=== PATIENT | male | born 1935 | race Caucasian/White ===

== ENCOUNTER 2018-04-03 09:03 | Inpatient (IN) | payer OTHER ==
[~2018-04-03] VITALS: Ht 180.3 cm; Wt 89.4 kg
[2018-04-03] VITALS (8 sets, daily range): BP systolic 101–149; BP diastolic 62–90
--- NOTE | ~2018-04-03 | HC ---
[facility] [place] [address] CONSULTATION Name: KAREN BULLOCK Room #: 451-P [facility] IN M.R.#: [id number] Admission: 04/03/18 Attend Phys: Parth Shepherd MD Discharge: 04/05/18 Date of : 33 Report #: [id number] THIS REPORT FOR: //name// CC: Debbie Shepherd REASON FOR CONSULTATION: Cardiomyopathy. HISTORY OF PRESENT ILLNESS: The patient is an 82-year-old gentleman with a history of a nonischemic cardiomyopathy, improved with biventricular pacing, permanent atrial fibrillation, hypertension and dementia. Apparently, he had just gotten out of a chair and lost his balance, falling and sustained a left femoral neck fracture. He was seen in [facility] Emergency Department and transferred to [facility] for further evaluation. The patient was just seen in the office on 03/30 and was doing well. He continues to deny chest pain, pressure or ischemic type symptoms. No other injuries in the fall. No heart failure symptoms including orthopnea, paroxysmal nocturnal dyspnea or lower extremity edema. There have been no bleeding problems with warfarin. No symptoms to suggest ICD discharge. Recent [employer] device interrogation demonstrated a normally functioning device with 100% biventricular pacing, 5 years to elective generator replacement. ALLERGIES: HE HAS MULTIPLE ALLERGIES LISTED IN THE MEDICAL RECORD. THESE HAVE BEEN REVIEWED. PAST MEDICAL HISTORY: His past history in medical records have been reviewed and include a history of permanent atrial fibrillation, nonischemic cardiomyopathy, dementia, osteoarthritis, Parkinson's disease, dyslipidemia, sleep apnea, cataract excision, cholecystectomy, knee arthroscopy and tooth extraction. SOCIAL HISTORY: He is a former smoker and nondrinker. . FAMILY HISTORY: Notable for mother with congestive heart failure and hypertension. REVIEW OF SYSTEMS: All systems negative except as that noted above. PHYSICAL EXAMINATION: GENERAL: A pleasant gentleman who is alert, in no distress. VITAL SIGNS: Blood pressure is 112/73, heart rate is 75 and regular, temperature is 98.5 degrees, 5 feet 11 inches tall and 197 pounds. HEENT: There are neither xanthelasma, subcutaneous xanthomata, oral mucosal or digital cyanosis or kyphoscoliosis present. CHEST: Clear to auscultation and percussion. CARDIAC: Regular rate and rhythm with normal S1 and S2. ABDOMEN: Soft and nontender. [facility] [address] [place] [address] CONSULTATION Name: KAREN BULLOCK SETH Room #: 451-P DIS IN M.R.#: [id number] Admission: 04/03/18 Attend Phys: Parth Shepherd MD Discharge: 04/05/18 Date of : 34 Report #: [id number] EXTREMITIES: Without cyanosis, clubbing or edema. Radial pulses are 2+. NEUROLOGIC: He is alert with a nonfocal exam. LABORATORY DATA: Sodium 144, potassium 3.6, creatinine 1.1 and magnesium 1.7. INR of 1.8. White count 8.7, hemoglobin 12.5, hematocrit 36 and platelet count 115. EKG demonstrates biventricular pacing. IMPRESSION: 1. Nonsyncopal fall with hip fracture. 2. Nonischemic cardiomyopathy, EF 40-45% range. 3. Chronic systolic heart failure. 4. Permanent atrial fibrillation. 5. Hypertension. 6. Dementia. 7. History of biventricular pacing. 8. Sleep apnea. 9. Hypercoagulable. RECOMMENDATIONS: 1. Resume usual medications. Volume status is stable. 2. Recent device interrogation demonstrates a normally functioning device, 100% biventricular pacing. 3. No contraindications from a cardiovascular standpoint for hip surgery. 4. Resume anticoagulation when safe from a surgical standpoint. Thank you for asking me to participate in the patient's care. <ELECTRONICALLY SIGNED> By: Hayes Ricardo MD, FACC 04/06/18 0850 0737 21 Hayes Ricardo MD, FACC /nt
--- NOTE | ~2018-04-03 | EKG ---
[address] [address] ELECTROCARDIOGRAM REPORT Name: KAREN BULLOCK Room #: 451-P ADM IN M.R.#: [id number] Admission: 04/03/18 Attend Phys: Parth Shepherd MD Discharge: Date of : 34 Report #: [id number] THIS REPORT FOR: //name// [facility] Test Date: 2018-04-03 Test Time: 11:26:03 Pat Name: KAREN BULLOCK Department: Room: Gender: M [employer]: [employer] DOSS : 1935 Requested By: Parth Shepherd Order Number: [id number] MD: Ihsmael Garrison Measurements Intervals [place] Rate: 72 P: AK: QRS: -170 QRSD: 172 T: 15 QT: 466 QTc: 511 Interpretive Statements Atrial fibrillation Ventricular premature complex vs Karmen beat Right bundle branch block Baseline wander in lead(s) I Compared to ECG 02/13/2010 07:48:06 Ventricular premature complex(es) now present Electronically Signed On 04-03-2018 13:39:16 SEWAGE PLANT OPERATOR by Ishmael Garrison [email or web address] <ELECTRONICALLY SIGNED> By: Ishmael Garrison MD 04/03/18 1339 [id number] [id number] Ishmael Garrison MD /EPI
--- NOTE | ~2018-04-03 | EKG ---
[address] [employer] [place] [address] ELECTROCARDIOGRAM REPORT Name: KAREN BULLOCK Room #: 451-P ADM IN M.R.#: [id number] Admission: 04/03/18 Attend Phys: Parth Shepherd MD Discharge: Date of : 34 Report #: [id number] THIS REPORT FOR: //name// [facility] Test Date: 2018-04-04 Test Time: 07:54:37 Pat Name: KAREN BULLOCK Department: Room: 451 P Gender: M Chicken Sexer: GR : 1935 Requested By: Parth Shepherd Order Number: [id number] MD: Hayes Ricardo Measurements Intervals [place] Rate: 78 P: [place]: QRS: 197 QRSD: 160 T: 21 QT: 446 QTc: 509 Interpretive Statements Afib/flut and V-paced complexes No further analysis attempted due to paced rhythm Baseline wander in lead(s) V5 Compared to ECG 04/03/2018 11:26:03 No significant change was found Electronically Signed On 04-04-2018 7:59:15 ELEVATOR SERVICEMAN by Hayes Ricardo [email or web address] <ELECTRONICALLY SIGNED> By: Hayes Ricardo MD, [facility] 04/04/18 [id number] [id number] Hayes Ricardo MD, [facility] /EPI
--- NOTE | ~2018-04-03 | HC ---
[facility] [place] [address] CONSULTATION Name: KAREN BULLOCK Room #: 451-P ADM IN M.R.#: [id number] Admission: 04/03/18 Attend Phys: Parth Shepherd MD Discharge: Date of : 34 Report #: [id number] THIS REPORT FOR: //name// CC: Debbie Shepherd CHIEF COMPLAINT: Left hip fracture. HISTORY OF PRESENT ILLNESS: The patient is a pleasant 82-year-old male who was admitted to [facility] yesterday with diagnosis of a left femoral neck fracture, status post fall. The patient presented to the Emergency Department at [facility] yesterday after falling and landing on the left hip. The patient's reports that he went to get out of bed at about 05:30 yesterday morning, when he was trying to get out of the chair and he fell and landed on his left side. He was taken by ambulance to the Emergency Department at [facility], where he had x-rays taken showing left femoral neck fracture. He was then admitted to [facility] as a transfer for further care for his left hip. The patient's reports that they live at home alone and the patient, prior to this, ambulated without assistance. He does have a history of Parkinson's and the patient's family reports that his gait is very shuffled and unsteady, but up to this point, he has not had significant history of falls and this is his first fracture. ALLERGIES: DONALD INHIBITORS, ACETAMINOPHEN, AMIODARONE, AMLODIPINE, ATORVASTATIN, CCBS, CARVEDILOL, CLINDAMYCIN, ENALAPRIL, HYDROCHLOROQUINE, LOSARTAN, MIRTAZAPINE, PREDNISONE, QUINAPRIL, SOTALOL, STATIN AND VERAPAMIL. PAST MEDICAL HISTORY: Significant for atrial fibrillation, anticoagulation on Coumadin; Parkinson disease with dementia; BPH; cardiomyopathy; cataracts; GERD; hypertension; insomnia; osteoarthritis of the bilateral shoulders; psychosis; systolic heart failure and vitamin D deficiency. PAST SURGICAL HISTORY: Significant for biventricular ICD placement, cholecystectomy, right TKA and bilateral carpal tunnel syndrome. MEDICATIONS: Please see MAR for current dosages. SOCIAL HISTORY: The patient denies any tobacco, alcohol or drug use. The patient lives at home with his and typically ambulates without assistance. PHYSICAL EXAMINATION: VITAL SIGNS: Temperature 38.6, blood pressure 125/68, bedside pulse oximetry 87 and pulse rate 75. GENERAL: The patient is awake and alert, in no acute distress. EXTREMITIES: Left leg is neurovascularly intact, tenderness to palpation about the anterior and lateral aspects of the left hip. No tenderness to palpation of the thigh, knee, calf or foot. Calf is soft. Pain with attempted range of [facility] [address] [place] [address] CONSULTATION Name: KAREN BULLOCK SETH Room #: 451-P ADM IN M.R.#: [id number] Admission: 04/03/18 Attend Phys: Parth Shepherd MD Discharge: Date of : 34 Report #: [id number] motion of the left hip. RADIOGRAPHIC DATA: Two views of the left hip performed at [facility] yesterday were reviewed and show a left femoral neck fracture. SUMMARY: We reviewed the patient's diagnosis and treatment options today with the patient and his family who is at the bedside today. We discussed risks and benefits as well as potential complications following a left hip hemiarthroplasty. We discussed the need for physical therapy postoperatively, this may result in admission to a fpc facility. We also discussed that going forward He may need to ambulate with a cane or walker as he has a shuffled gait and is unsteady on his feet. The patient and his family have elected to proceed with left hip hemiarthroplasty. The patient was given fresh frozen plasma yesterday to reverse his Coumadin and we will plan on proceeding with surgery today. By: 1110 [id number] JUAN Bhat /william
--- NOTE | ~2018-04-03 | O ---
[facility] [place] [address] OPERATIVE REPORT Name: KAREN BULLOCK Room #: 451-P ADM IN M.R.#: [id number] Admission: 04/03/18 Attend Phys: Parth Shepherd MD Discharge: Date of : 34 Report #: [id number] THIS REPORT FOR: //name// CC: Debbie Shepherd DATE OF SERVICE: 04/04/2018 PREOPERATIVE DIAGNOSIS: Left femoral neck fracture, displaced. POSTOPERATIVE DIAGNOSIS: Left femoral neck fracture, displaced. PROCEDURE PERFORMED: Left hip hemiarthroplasty. SURGEON: Salty Canales M.D. ROLLER SKATE ASSEMBLER: Shayla Sheldon PA-C. ANESTHESIA: General. FLUIDS: Approximately 800 mL of crystalloid. ESTIMATED BLOOD LOSS: Approximately 100 mL. IMPLANTS UTILIZED: [employer] Synergy cemented stem size 14 with 55 mm unipolar head, +0 taper sleeve with distal 12 mm centralizer. DESCRIPTION OF PROCEDURE: After proper identification of the patient and operative site in preoperative holding area, the operative site was signed by myself. Prophylactic antibiotics were given. The patient elected to receive the above-proposed procedure. After proper identification of the patient and the operative site in the preoperative holding area, the patient's condition and potential treatment options were reviewed in detail with him as well as his family members. The patient has also been evaluated preoperatively by Dr. Parth Shepherd from a hospitalist standpoint. The patient was brought back to the operative suite after induction of satisfactory general anesthesia. He was carefully positioned in the right lateral decubitus position. Pelvis was stabilized. The axillary roll was utilized. Left hip was sterilely prepped and draped in the usual manner. Final skin draping was with Ioban. Posterior approach to the hip was planned. Skin was incised sharply. Full thickness skin flaps were developed. A Charnley retractor was carefully placed. Piriformis tendon was identified and tagged. Short external rotators were divided. T-shaped capsulotomy was performed and apices were tagged. Femoral head was displaced posteriorly. It was removed with a corkscrew, measured 55 mm on the backtable and a trial reduction ball of 55 mm provided the best overall fit and stability. The acetabulum was intact without fractures or significant chondral [address] [address] OPERATIVE REPORT Name: KAREN BULLOCK [facility] Room #: 451-P [facility] IN ..#: [id number] Admission: 04/03/18 Attend Phys: Parth Shepherd MD Discharge: Date of : 34 Report #: [id number] damage. The femoral neck fracture was then freshened up approximately 1 cm above the lesser trochanter using an oscillating saw. This was prepared by hand with reaming and broaching up to a size 14 Synergy cemented stem. A distal cement restrictor had been placed after the trials were utilized. The joint was thoroughly irrigated with normal saline. Two bags of cement were prepared. The canal was irrigated with normal saline and a pulse systems development consultant. Dried cement was pressurized and injected. The stem was inserted in an inverted position. After the cement had fully cured and the excess bone cement had been removed, trial reduction was again utilized and final implantation with a 55 mm head posterior sleeve. This appeared to provide equal leg lengths on the table with stable range of motion. No propensity to dislocate. Capsule was repaired with #2 FiberWire after the joint had been thoroughly irrigated with antibiotic irrigant. The piriformis was reapproximated with #2 FiberWire. One gram of vancomycin powder was utilized, half of it deep, half of it more superficial. Gluteal fascia was repaired with 0 Vicryl and 2-0 Vicryl for the subcutaneous tissues. Final skin closure was with ruben. Sterile dressing was applied. He was awakened and transferred to the recovery room in stable condition. Qualified assistant county attorney utilized throughout the entire procedure to aid in patient limb positioning, visualization and retraction of the soft tissues, instrument passage, closure and dressing application. By: 1248 1352 Salty Canales MD /william
[~2018-04-03 09:03] MED LIST: ARICEPT 5 MG TAB5 MG PO; BENICAR20 MG PO; CALCIUM +D & M1 EACH PO; COUMADIN 5 MG TA5 M1 PO; DILTIAZEM 24HR180 MG PO; DILTIAZEM ER180 MG PO; JANTOVEN6 MG PO; K-DUR 20 MEQ T20 MEQ PO; LASIX 40 MG TAB40 MG PO; SEROQUEL 25 MG25 M1 PO; SINEMET 25-1001 EAC1 PO; TOPROL XL50 MG PO; TRAMADOL 50 MG50 MG PO; VISION PLUS LU1 EACH PO
[2018-04-03] MEDS ORDERED: ARICEPT 5 MG TAB5 MG PO (11:23)
[2018-04-03] MEDS ORDERED: FLONASE 0.05%50 MCG NASAL (11:24)
[2018-04-03] MEDS ORDERED: SINEMET 25-1001 EAC1 PO (11:26)
[2018-04-03] MEDS ORDERED: CLONAZEPAM 0.50.5 M1 PO ×2 (11:28→11:29)
[2018-04-03] MEDS ORDERED: K-DUR 20 MEQ T20 MEQ PO (11:28)
[2018-04-03] MEDS ORDERED: NAMENDA 10 MG T10 MG PO (11:29)
[2018-04-03] MEDS ORDERED: FINASTERIDE5 MG PO (11:30)
[2018-04-03] MEDS ORDERED: TRAMADOL 50 MG50 MG PO (11:31)
[2018-04-03] MEDS ORDERED: VITAMIN D1000 UNI2 PO (11:32)
[2018-04-03] MEDS ORDERED: ZANTAC 150MG T150 MG PO (11:33)
[2018-04-03 16:21] LABS: INR 2.6; PROTIME 27.2 Seconds (9.3-11.4)
[2018-04-04] VITALS (9 sets, daily range): BP systolic 103–125; BP diastolic 61–82
[2018-04-04 04:35] LABS: HEMATOCRIT 36.8 % (42.0-52.0); HEMOGLOBIN 12.5 gm/dL (14.0-18.0); MCH 31.9 pg (26.0-34.0); MCHC 34.1 g/dL (28.0-37.0); MCV 93.4 fL (80.0-100.0); RBC 3.94 mil/uL (4.50-6.00); RDW 14.3 % (10.5-14.5); WBC 8.7 thou/uL (4.0-11.0)
[2018-04-04 04:45] LABS: INR 1.8; PROTIME 18.7 Seconds (9.3-11.4)
[2018-04-04 04:46] LABS: CALCIUM 8.2 mg/dL (8.5-10.1); CREATININE 1.1 mg/dL (0.7-1.3); MAGNESIUM 1.7 mg/dL (1.8-2.4); POTASSIUM 3.6 mmol/L (3.5-5.1)
[2018-04-05 00:15] VITALS: BP 106/60
[2018-04-05 01:24] LABS: BE(vivo) -4.3 mmol/L (-2 to +3); HCO3 26.6 mmol/L (22.0-26.0); PO2 80.2 mmHg (80.0-100.0); sO2 90.9 % (92.0-98.0)
[2018-04-05 01:26] LABS: PCO2 83.5 mmHg (35.0-45.0); pH 7.121 (7.360-7.450)
== END 2018-04-05 01:30 | DRG 470 ==
LOC: 4W 09:03
PROVIDERS: Internal Medicine
PROC: 30233L1 Transfusion of Nonautologous Fresh Plasma into Peripheral Vein, Percutaneous Approach (ICD-10-PCS; principal; 2018-04-03)
PROC: 30233K1 Transfusion of Nonautologous Frozen Plasma into Peripheral Vein, Percutaneous Approach (ICD-10-PCS; principal; 2018-04-03)
PROC: 0SRS0J9 Replacement of Left Hip Joint, Femoral Surface with Synthetic Substitute, Cemented, Open Approach (ICD-10-PCS; 2018-04-04)
PROC: 5A12012 Performance of Cardiac Output, Single, Manual (ICD-10-PCS; 2018-04-05)
DX: S72.002A Fracture of unspecified part of neck of left femur, initial encounter for closed fracture (principal); I42.9 Cardiomyopathy, unspecified; I50.22 Chronic systolic (congestive) heart failure; D68.59 Other primary thrombophilia; F02.81 Dementia in other diseases classified elsewhere, unspecified severity, with behavioral disturbance; E87.4 Mixed disorder of acid-base balance; M19.90 Unspecified osteoarthritis, unspecified site; G20 Parkinson's disease; I11.0 Hypertensive heart disease with heart failure; G30.1 Alzheimer's disease with late onset; N40.0 Benign prostatic hyperplasia without lower urinary tract symptoms; I48.2 Chronic atrial fibrillation; F32.9 Major depressive disorder, single episode, unspecified; E55.9 Vitamin D deficiency, unspecified; G47.33 Obstructive sleep apnea (adult) (pediatric); M62.84 Sarcopenia; R79.89 Other specified abnormal findings of blood chemistry; K21.9 Gastro-esophageal reflux disease without esophagitis; Z96.651 Presence of right artificial knee joint; W18.30XA Fall on same level, unspecified, initial encounter; Y93.89 Activity, other specified; Y92.89 Other specified places as the place of occurrence of the external cause; Y99.8 Other external cause status; Z95.810 Presence of automatic (implantable) cardiac defibrillator; Z90.49 Acquired absence of other specified parts of digestive tract; Z87.442 Personal history of urinary calculi; Z87.891 Personal history of nicotine dependence; Z79.01 Long term (current) use of anticoagulants; Z79.51 Long term (current) use of inhaled steroids; Z79.899 Other long term (current) drug therapy; Z88.1 Allergy status to other antibiotic agents; Z88.8 Allergy status to other drugs, medicaments and biological substances; Z82.49 Family history of ischemic heart disease and other diseases of the circulatory system
CPT/HCPCS: 10045; 10047; 50010; 50101; 50382; 50414; 50939; 51057; 51130; 51225; 51226; 51412; 53000; 53078; 53369; 56460; 56525; 56530; 57103; 62110; 62900; 70005